=== PATIENT | female | born 1990 | race African-American/Black ===

== ENCOUNTER 2017-01-18 03:35 | Emergency (ER) | payer MEDICAID ==
[~2017-01-18] VITALS: Ht 167.6 cm; Wt 78.0 kg
[2017-01-18] MEDS ORDERED: ACETAMINOPHEN 325MG TABLET PO STA (07:18)
[2017-01-18 08:07] LABS: BASOPHILS % 0.4 % (0.0-2.0); EOSINOPHILS % 2.3 % (0.0-5.0); HEMATOCRIT. 35.6 % (36.0-48.0); HEMOGLOBIN. 11.6 g/dL (12.0-16.0); LYMPHOCYTES % 36.5 % (20.0-50.0); MEAN CORPUSCULAR HEMOGLOBIN 27.4 pg (28.0-32.0); MEAN PLATELET VOLUME 7.7 fl (7.4-10.4); MONOCYTES % 8.2 % (2.0-8.0); NEUTROPHILS % 52.6 % (40.0-76.0); PLATELET 262 x1000/uL (130-400); RED BLOOD CELL COUNT 4.24 mill/uL (4.2-5.4); RED CELL DISTRIBUTION WIDTH 16.3 % (11.6-14.6)
[2017-01-18 08:12] LABS: CHLORIDE 106 mEq/L (98-107)
[2017-01-18 08:21] LABS: CARBON DIOXIDE 27 mEq/L (21-32)
[2017-01-18 09:46] VITALS: BP 129/59
[2017-01-18 10:14] LABS: CLARITY URINE CLEAR (CLEAR); COLOR URINE YELLOW (YELLOW); GLUCOSE URINE NEGATIVE (NEGATIVE); KETONES URINE NEGATIVE (NEGATIVE); LEUKOCYTE ESTERASE URINE NEGATIVE (NEGATIVE); NITRITE URINE NEGATIVE (NEGATIVE); OCCULT BLOOD URINE NEGATIVE (NEGATIVE); PROTEIN URINE NEGATIVE (NEGATIVE); SPECIFIC GRAVITY URINE 1.009 (1.005-1.030); UROBILINOGEN URINE 0.2 E.U./dL (0.2-1.0)
[2017-01-18] MEDS ORDERED: CEFTRIAXONE SODIUM 250 MG/VIAL IM ONE (10:30)
[2017-01-18] MEDS ORDERED: LIDOCAINE HCL 1% 20ML VIAL (Pyxis) INJ MC ONE (10:30)
[2017-01-18] MEDS ORDERED: AZITHROMYCIN 500 MG TABLET PO ONE (10:30)
[2017-01-18 10:53] LABS: *AMPHETAMINES SCREEN URINE NEGATIVE (NEGATIVE); *BARBITURATES SCREEN URINE NEGATIVE (NEGATIVE); *BENZODIAZEPINES SCREEN URINE NEGATIVE (NEGATIVE); *COCAINE SCREEN URINE NEGATIVE (NEGATIVE); METHADONE URINE SCREEN NEGATIVE (NEGATIVE); OPIATES URINE SCREEN NEGATIVE (NEGATIVE); PHENCYCLIDINE URINE SCREEN NEGATIVE (NEGATIVE)
[2017-01-18 11:11] LABS: CANNABINOID URINE SCREEN PRESUMTIVE POSITIVE (NEGATIVE)
== END 2017-01-18 11:41 | disposition left against medical advice (07) ==
LOC: ER 03:35
DX: R10.2 Pelvic and perineal pain (principal); F12.10 Cannabis abuse, uncomplicated; N89.8 Other specified noninflammatory disorders of vagina; Z98.890 Other specified postprocedural states
CPT/HCPCS: 36415; 76830; 76856; 80053; 80305; 81003; 81025; 83690; 85025; 99285; Z7610